=== PATIENT | female | born 1990 | race Caucasian/White ===

== ENCOUNTER 2017-08-19 12:02 | Emergency (ER) | payer OTHER ==
[~2017-08-19] VITALS: Ht 157.5 cm; Wt 68.0 kg
[~2017-08-19 12:02] MED LIST: CELEXA20 MG PO; MELATIN3 MG PO; MOBIC15 MG PO; SERTRALINE HCL50 MG PO; TESSALON PERLE100 MG PO
[2017-08-19] MEDS ORDERED: BACTRIM DS TAB1 EACH PO (12:56)
== END 2017-08-19 13:11 | disposition home or self-care (01) ==
LOC: ER 12:02
DX: L03.311 Cellulitis of abdominal wall (principal); I10 Essential (primary) hypertension; F98.8 Other specified behavioral and emotional disorders with onset usually occurring in childhood and adolescence; F17.210 Nicotine dependence, cigarettes, uncomplicated; Z88.0 Allergy status to penicillin

== ENCOUNTER 2017-09-04 16:04 | Emergency (ER) | payer BC ==
[~2017-09-04] VITALS: Ht 157.5 cm; Wt 68.0 kg
[~2017-09-04 16:04] MED LIST changes: +BACTRIM DS TAB1 EACH PO
[2017-09-04 16:55] LABS: ABSOLUTE NEUTROPHILS 4.1 thou/uL (1.4-8.2); BASOPHILS 0.7 % (0.0-2.0); EOSINOPHILS 0.3 % (0.0-3.0); HEMOGLOBIN 13.6 gm/dL (12.0-15.0); LYMPHOCYTES 20.2 % (24.0-44.0); MCHC 33.2 g/dL (28.0-37.0); MCV 78.4 fL (80.0-100.0); MONOCYTES 8.8 % (1.0-8.0); PLATELET COUNT 157 thou/uL (150-400); RBC 5.23 mil/uL (4.20-5.00); RDW 18.7 % (10.5-14.5); WBC 5.8 thou/uL (4.0-11.0)
[2017-09-04 17:04] LABS: CREATININE 0.8 mg/dL (0.6-1.0); POTASSIUM 3.5 mmol/L (3.5-5.1)
[2017-09-04 17:48] LABS: URINE BILIRUBIN NEGATIVE (Negative); URINE BLOOD NEGATIVE (Negative); URINE CLARITY CLEAR; URINE COLOR YELLOW; URINE GLUCOSE-RANDOM* NEGATIVE (Negative); URINE KETONES NEGATIVE (Negative); URINE LEUKOCYTES-REFLEX NEGATIVE (Negative); URINE NITRITE-REFLEX NEGATIVE (Negative); URINE PROTEIN (DIPSTICK) NEGATIVE (Negative); URINE SPECIFIC GRAVITY <= 1.005 (1.005-1.035); URINE UROBILINOGEN 0.2 E.U./dl (0.2-1.0)
[2017-09-04] MEDS ORDERED: OSELB75 PO (18:02)
== END 2017-09-04 18:39 | disposition home or self-care (01) ==
LOC: ER 16:04
PROVIDERS: Emergency Medicine
DX: J11.1 Influenza due to unidentified influenza virus with other respiratory manifestations (principal); I10 Essential (primary) hypertension; F17.210 Nicotine dependence, cigarettes, uncomplicated; Z88.0 Allergy status to penicillin

== ENCOUNTER 2021-03-24 21:09 | Emergency (ER) | payer OTHER ==
[~2021-03-24] VITALS: Ht 160 cm; Wt 63.5 kg
[~2021-03-24 21:09] MED LIST changes: +OSELB75 PO
[2021-03-24] MEDS ORDERED: DESYREL150 MG PO (21:27)
[2021-03-24] MEDS ORDERED: LAMICTAL100 MG PO (21:28)
[2021-03-24] MEDS ORDERED: [UNRECOGNIZED DRUG - REMARK] PO (21:29)
[2021-03-24] MEDS ORDERED: PROAIR HFA8.5 GM INH (22:43)
[2021-03-24] MEDS ORDERED: TESSALON PERLE100 M1 PO (22:43)
[2021-03-25 07:36] VITALS: BP 110/70
--- NOTE | 2021-03-25 13:22 | EKG ---
[address] [employer] [place] [address] ELECTROCARDIOGRAM REPORT Name: LOBOLUDMILA ZARCO Room #: [id number] Admission: 03/24/21 Attend Phys: Discharge: Date of : 88 Report #: [id number] [facility] ED Test Date: 2021-03-24 Test Time: 21:30:07 Pat Name: LUDMILA LOBO Department: Room: Gender: F Medical Record Coder: TAMIE : 1990 Requested By: Mercedes Carlos Order Number: [id number] MD: Gerardo Lucero Measurements Intervals [place] Rate: 68 P: -45 RI: 144 QRS: 79 QRSD: 90 T: 54 QT: 386 QTc: 411 Interpretive Statements Sinus or ectopic atrial rhythm No previous ECG available for comparison Electronically Signed On 03-25-2021 13:22:32 CDT by Gerardo Lucero [email or web address] <ELECTRONICALLY SIGNED> By: Gerardo Lucero MD, [facility] 03/25/21 1322 29 2130 Gerardo Lucero MD, FACC /EPI
== END 2021-03-24 23:00 | disposition home or self-care (01) ==
LOC: ER 21:09
DX: R06.02 Shortness of breath (principal); M79.674 Pain in right toe(s); F17.210 Nicotine dependence, cigarettes, uncomplicated; F12.90 Cannabis use, unspecified, uncomplicated; I10 Essential (primary) hypertension; F31.9 Bipolar disorder, unspecified; F20.9 Schizophrenia, unspecified; Z98.890 Other specified postprocedural states; Z79.899 Other long term (current) drug therapy; Z79.1 Long term (current) use of non-steroidal anti-inflammatories (NSAID); Z88.0 Allergy status to penicillin